=== PATIENT | male | born 1975 | race Caucasian/White ===

== ENCOUNTER 2023-10-20 16:25 | Outpatient (CLI) | payer OTHER, SELFPAY ==
--- NOTE | ~2023-10-20 | US_ITS ---
EXAMINATION: US scrotum doppler DATE: 10/20/2023 17:34 INDICATION: N50.812 - Left testicular pain . TECHNIQUE: Grayscale and Doppler ultrasound images of the testes were obtained. COMPARISON: 05/29/2013. FINDINGS: The right testis measures 5.1 x 2.3 x 3.2 cm. The left testis measures 4.3 x 2.5 x 3.4 cm. No testicular mass. There is normal vascular flow to both testes. The right epididymis is mildly enla rged with normal vascular flow. The left epididymis is mildly enlarged with normal vascular flow. 8 m m left epididymal head cyst. No varicocele. Small left hydrocele with debris. IMPRESSION: Bilateral epididymal enlargement, greater on the left, may represent tubular ectasia status post vase ctomy. Epididymitis is considered less likely due to the lack of hypervascularity but should still be considered in the differential. Small left hydrocele with debris. Reviewed, dictated and finalized at location K. CARE PROVIDER IMPRESSION: Bilateral epididymal enlargement, greater on the left, may represent tubular ec demian status post vasectomy. Epididymitis is considered less likely due to the lack of hypervascularity but should still be considered in the differential. Small left hydrocele with debris.
[2023-10-20 17:28] LABS: Bacteria Urine None Seen /hpf; Non Pathogenic Casts 0-2; RBC Urine 0-2 /hpf (0-2); Squamous Epithelial Cell Urine None seen /hpf (Few); WBC Urine 0-5 /hpf
[2023-10-20 17:37] LABS: Appearance Urine Clear (Clear); Bilirubin Urine Negative (Negative); Blood Urine Negative (Negative); Color Urine Yellow (Yellow); Glucose Urine UA Negative (Negative); Ketones Urine Negative (Negative); Leukocyte Esterase Ur Negative LEU/UL (Negative); Nitrate Urine Negative (Negative); Protein Urine Negative (Negative); Specific Grav Ur 1.014 (1.001-1.035); Urobilinogen Urine 0.2 mg/dL (<2.0)
[2023-10-20 17:39] LABS: Add Urine Microscopic? YES
== END 2023-10-20 16:26 | disposition home or self-care (01) ==
PROVIDERS: PCP Family Medicine; Visit Provider Physician Assistant Medical
DX: N43.3 Hydrocele, unspecified (principal); Z98.52 Vasectomy status
CPT/HCPCS: 76870; 81001; 93976

== ENCOUNTER 2024-02-25 15:14 | Outpatient (CLI) | payer OTHER, SELFPAY ==
--- NOTE | ~2024-02-25 | CT_ITS ---
EXAMINATION: CT abdomen pelvis wo con DATE: 02/25/2024 15:36 INDICATION: Left lower quadrant abdominal pain TECHNIQUE: Computed tomography (CT) of the abdomen and pelvis was performed without intravenous contr ast. Automated exposure control and iterative reconstruction technique were employed. Exam dose: 122 1.68 mGy-cm total exam DLP. COMPARISON: 03/25/2017 CT abdomen pelvis images are not available from the archive at this time. FINDINGS: Elevated diaphragm and mild associated right basilar atelectasis; the 03/20 CT abdome n pelvis reported chronic elevation and discoid atelectasis or scarring in the right lower lobe. The lower lung zones are otherwise clear. Normal heart size. No pericardial or pleural effusion. Status post cholecystectomy. No hepatic, splenic, pancreatic, and adrenal or renal space-occupying ma ss lesion is evident on this limited noncontrast examination. No bile duct or pancreatic duct dilatation. No urinary tract calculus or hydroureteronephrosis. There is mild prostate enlargement. Multiple prostate calcifications. The urinary bladder is unremark able. Bilateral small fat-containing inguinal hernias and small fat-containing umbilical hernia. Normal caliber of the abdominal aorta. No intraperitoneal or retroperitoneal or pelvic mass lesion or adenopathy or ascites is detected. Normal appendix. No bowel obstruction, bowel wall thickening, pneumatosis or intraperitoneal free air is detected. Degenerative changes of the thoracic and lumbar spine. No suspicious osteolytic or osteoblastic lesio ns. IMPRESSION: No diverticulosis, diverticulitis or appendicitis No urinary tract calculus or hydroureteronephrosis Bilateral small fat-containing inguinal hernias and small fat-containing umbilical hernia Status post cholecystectomy Chronic elevation of right diaphragm and associated mild atelectasis at right lung base Reviewed, dictated and finalized at Location A. Reviewed, dictated and finalized at location A. IMPRESSION: No diverticulosis, diverticulitis or appendicitis No urinary tract calculus or hydroureteronephrosis Bilateral small fat-containing inguinal hernias and small fat-containing umbili elis hernia Status post cholecystectomy Chronic elevation of right diaphragm and associated mild atelectasis at right l shashi base
== END 2024-02-25 15:15 ==
LOC: MICIMG 15:15
PROVIDERS: PCP Family Medicine; Visit Provider Physician Assistant
DX: R10.32 Left lower quadrant pain (principal); K57.90 Diverticulosis of intestine, part unspecified, without perforation or abscess without bleeding; Z90.49 Acquired absence of other specified parts of digestive tract; K40.20 Bilateral inguinal hernia, without obstruction or gangrene, not specified as recurrent
CPT/HCPCS: 74176

== ENCOUNTER 2024-09-08 01:01 | Day surgery (SDC) | payer OTHER, SELFPAY ==
--- NOTE | 2024-06-13 10:59 | SUR.PREOP ---
Patient called regarding his appointment. Unable to leave message on pt's voicemail.
--- NOTE | 2024-06-15 09:30 | SUR.PREOP ---
Pt called regarding his appointment. Message left requesting a call back.
[2024-08-23 14:03] VITALS: BMI 31.9
[2024-09-08 09:08] VITALS: BP 146/87; PULSE 102; RESP 20; TEMP 36.2; O2SAT 100; BMI 31.7
[2024-09-08] MEDS: LACTATED RINGERS 1,000 ML 150 ML IV CONT (09:23)
--- NOTE | 2024-09-08 09:26 | WPDANESEPPF ---
Anes - Initial Pre Proc Eval Procedure: Operation Date: 09/08/24 10:30 Proposed Procedures p Colonoscopy - Enrique Hardin MD Date/Time: 09/08/24 09:26 Surgeon: Enrique Hardin MD Pre Op Diagnosis: LLQ pain Patient Data Age: 49 Gender: M Height: 1.78 m Weight: 100.4 kg Last Vital Signs Temp 97.2 F L 09/08/24 09:08 Pulse 102 H 09/08/24 09:08 Resp 20 09/08/24 09:08 BP 146/87 H 09/08/24 09:08 Pulse Ox 100 09/08/24 09:08 O2 Del Method Room Air 09/08/24 09:08 Allergies Allergy/AdvReac Type Severity Reaction Status Date / Time No Known Allergies Allergy Unknown Verified 09/08/24 09:07 Home Medications Medication Instructions Recorded Confirmed Type valacyclovir 500 mg tablet 500 mg PO DAILY #90 tabs 09/04/24 09/08/24 Rx Patient hx anesthesia problems: none Family hx anesthesia problems: none Results Review: All pre-operative results and documents have been reviewed as part of the pre-operative evaluation. [facility] Past Medical History Medical History Allergic rhinitis SUSAN (generalized anxiety disorder) Family History Family History Mother Diabetes mellitus Social History Social History Smoking status: Never smoker Second hand tobacco smoke exposure: No Alcohol intake: never Substance use: never Substance use type: does not use Living arrangements: with family Occupation/Education: occupation Gender identity (if verbalized by the patient): Male Spiritual care concerns: No Anes - Eval Final PreProcedure Day of Procedure 09/08/24 09:26 Patient weight: obese Heart: regular rate and rhythm Lungs: clear to auscultation Airway: Mallampati scale class II Neurological: alert and oriented Last oral intake: >/= 8 hours ASA classification: II Emergent: no Anesthetic plan: proceed Anesthesia type and monitoring: general GIVS and standard monitoring Results Review: All pre-operative results and documents have been reviewed as part of the pre-operative evaluation. Overall good health, walks 2 miles/day, no cp or sob. Informed Consent: The patient's anesthetic plan and its attendant risks and benefits were discussed with the patient/family/POA. Questions were solicited and answers provided to the satisfaction of the patient/family/POA.
--- NOTE | 2024-09-08 09:27 | PM.HPGS ---
History of Present Illness History of Present Illness Consent: Risks, benefits, and alternatives have been discussed and questions answered. Patient agrees to proceed with procedure. Chief complaint: LLQ pain Narrative: Keegan Perry is a 49 year old male here for colonoscopy, last one 10 years ago, also llq pain, ct scan showed small inguinal and umbilical hernias. Review of Systems Review of Systems: All systems reviewed & are unremarkable except as noted in HPI and below PMFSH Past Medical History Medical History (Updated 09/08/24 @ 09:30 by Enrique Hardin MD) Allergic rhinitis Colon cancer screening SUSAN (generalized anxiety disorder) LLQ pain Umbilical hernia Family History Family History Mother Diabetes mellitus Social History Social History Smoking status: Never smoker Second hand tobacco smoke exposure: No Alcohol intake: never Substance use: never Substance use type: does not use Living arrangements: with family Occupation/Education: occupation Gender identity (if verbalized by the patient): Male Spiritual care concerns: No Meds Home Medications and Allergies Home Medications Medication Instructions Recorded Confirmed Type valacyclovir 500 mg tablet 500 mg PO DAILY #90 tabs 09/04/24 09/08/24 Rx Allergies Allergy/AdvReac Type Severity Reaction Status Date / Time No Known Allergies Allergy Unknown Verified 09/08/24 09:07 Vital Signs Vital Signs - 24 hr 09/08/24 09:08 Temperature 97.2 F L Pulse Rate 102 H Respiratory Rate 20 Blood Pressure 146/87 H Pulse Oximetry 100 Oxygen Delivery Room Air Exam Const: General: comfortable and no acute distress HENMT: Face/Nose/Sinus: Normal nares present Eyes: General: appearance normal, both eyes and all related structures Neck: Neck: no JVD Resp: Auscultation: clear to auscultation bilaterally Cardio: Rate: regular rate Rhythm: regular rhythm GI: Inspection: non-distended GI Palp: Yes Soft to palpation Other: small reducible umbilical hernia Skin: General skin exam: normal color Neuro: General: gait normal Speech: normal speech Extrem: General: normal to inspection Psych: Mental Status: mental status grossly normal Assessment and Plan Assessment and plan (1) Colon cancer screening: Code(s): Z12.11 - Encounter for screening for malignant neoplasm of colon Status: Acute Assessment and Plan: colonoscopy (2) LLQ pain: Code(s): R10.32 - Left lower quadrant pain Status: Acute (3) Umbilical hernia: Code(s): K42.9 - Umbilical hernia without obstruction or gangrene Status: Acute Assessment and Plan: if more symptomatic consider referral to surgery
[2024-09-08 09:40] VITALS: BP 134/88; PULSE 83; RESP 13; O2SAT 97
[2024-09-08 09:50] VITALS: BP 116/78; PULSE 75; RESP 15; O2SAT 98
[2024-09-08 10:00] VITALS: BP 119/92; PULSE 84; RESP 16; O2SAT 99
== END 2024-09-08 10:10 | disposition home or self-care (01) ==
PROVIDERS: PCP Family Medicine; Referring Provider Family Medicine; Visit Provider Internal Medicine Gastroenterology
PROC: 0DJD8ZZ Inspection of Lower Intestinal Tract, Via Natural or Artificial Opening Endoscopic (ICD-10-PCS; CPT 45378; principal; 2024-09-08 10:30)
DX: Z12.11 Encounter for screening for malignant neoplasm of colon (principal); K64.8 Other hemorrhoids; F41.9 Anxiety disorder, unspecified; E66.9 Obesity, unspecified; Z68.31 Body mass index [BMI] 31.0-31.9, adult
CPT/HCPCS: 45378; J2704; J7120

== ENCOUNTER 2025-08-06 15:47 | Outpatient (CLI) | payer OTHER, SELFPAY ==
--- NOTE | ~2025-08-06 | CT_ITS ---
EXAMINATION: CT abdomen pelvis wo con, 08/06/2025 15:50 CDT HISTORY: Pelvic pain in male COMPARISON: Comparison 02/25/2024. TECHNIQUE: CT scan of the abdomen and pelvis was performed without IV contrast. One or more of the following dose reduction techniques were used: automated exposure control, adjustment of the mA and/or kV according to patient size, use of iterative reconstruction technique. Unless otherwise stated, incidental findings do not require dedicated follow up imaging FINDINGS: CT abdomen: LUNG BASES: The lung bases are clear. The visualized portions of the heart and pericardium are unremarkable. LIVER: Unremarkable, liver contours intact, no lesions. SPLEEN: Unremarkable, no splenomegaly. KIDNEYS: Right Kidney: Within the right kidney inferior pole collecting system there is a complex appearing focus measuring 2 x 2.5 cm incompletely evaluated. Left Kidney: Unremarkable. No calculi. No hydronephrosis ADRENAL GLANDS: Unremarkable. PANCREAS: Unremarkable. GALLBLADDER/BILIARY: Post cholecystectomy. STOMACH AND ESOPHAGUS: Visualized stomach and esophagus within normal limits. BOWEL/MESENTERY: Moderate fecal content, no colitis or diverticulitis. Appendix normal. Mesentery normal. Small bowel normal. ADENOPATHY/RETROPERITONEUM: No lymphadenopathy. AORTA/VASCULATURE: Normal caliber aorta. FREE FLUID OR FREE AIR: None. CT pelvis: SOLID ORGANS/REPRODUCTIVE: Prostate enlarged, correlate with PSA. BLADDER: Within normal limits. OSSEOUS STRUCTURES: No acute osseous abnormality.No suspicious lesions. OVERLYING SOFT TISSUES: Small fat-containing umbilical hernia. Small bilateral fat-containing inguinal hernia. IMPRESSION: 1. Complex appearing right renal lesion incompletely assessed. Contrast-enhanced CT or MRI is suggested to further evaluate. 2. No etiology to explain the patient's pain Reviewed, dictated and finalized at location A. IMPRESSION: 1. Complex appearing right renal lesion incompletely assessed. Contrast-enhance d CT or MRI is suggested to further evaluate. 2. No etiology to explain the patient's pain
== END 2025-08-06 15:48 | disposition home or self-care (01) ==
LOC: MICIMG 15:48
PROVIDERS: PCP Family Medicine; Visit Provider Urology
DX: R10.2 Pelvic and perineal pain (principal); N28.89 Other specified disorders of kidney and ureter
CPT/HCPCS: 74176

== ENCOUNTER 2025-08-25 12:13 | Outpatient (CLI) | payer OTHER, SELFPAY ==
--- OUTSIDE RECORDS SUMMARY | 2025-06-11 09:00 | XMS_ITS ---
Author Organization [facility] Address [address] [place] [address] Care Team Providers Care Cobbler Apprentice Name Role Phone Erik Baig Unavailable [phone] Yandy LYON, Nash Unavailable Unavailable REASON FOR VISIT Left L3, L4, L5 RF @[facility] w/sed Medications Medication SIG (Take, Route, Frequency, Duration) Notes Start Date End Date Status Triamcinolone Acetonide 0.1 % 1 applicat ion Externally Two times a Week Active Probiotic - as directed Orally Active Multivitamin Adult - 1 tablet Orally Onc e a day; Duration: 30 day(s) Active methylPREDNISolone 4 MG 1 tablet with fo od or milk Orally every 12 hrs; Duration: 30 day(s) Active Encounters Encounter Location Date Provider Diagnosis -[address] [address] 06/11/2025 Erik Baig Plan Of Treatment No Information Progress Notes * Keegan PERRYDOB:[birth year] (50 yo M)Acc No.[id number]:06/11/2025 Progress Note Patient: Erasmo HOLMEDWARDO Keegan Provider: Ira Baig MD :1975 A ge:50 Y S ex:Male Date:06/11/2025 Address:[address] Subjective: * Chief Complaints: * 1 . Left L3, L4, L5 RF @[facility] w/sed. * ROS: C ancer: Breast N o, No. P rostate N o, No. S kin N o, No. O thers N o, No. A utoimmune: Fibromylagia N o, No. L upus N o, No. T MJ N o, No. O steoarthritis N o, No. R heumatoid arthritis N o, No. O thers N o, No. R enal: Kidney stones N o, No. K idney infections N o, No.?Others N o, No. G enitourinary: Prostrate problems N o, No. U rinary Incontinence N o, No. B ladder infections N o, No. O thers N o, No. C entral nervous system: Stroke N o, No. H eadaches N o, No. M igraines?No, No. N erve Damage N o, No. O thers N o, No. I nfectious disease: Hepatitis N o, No. M ononucleosis N o, No. O thers N o, No. P sychiatric: Depression N o, No. E CT Treatments N o, No. A nxiety N o, No. A lcoholism N o, No. P anic Attacks N o, No. D rug Addiction?No, No. O ther N o, No. C ardiology: High blood Pressure N o, No. H eart Attack N o, No.?Angina(Chest Pain) N o, No. C ongestive heart failure N o, No. O thers N o, No. E ndocrinology: Diabetes N o, No. T hyroid disease N o, No. O thers N o, No. G astroenterology: Peptic ulcer disease N o, No. I rritable bowel syndrome N o, No. G ERD N o, No. D iverticulosis N o, No. O thers N o, No. H ematology/Lymph: Anemia N o, No. S ickle Cell N o, No. O thers?No, No. R espiratory: Asthma N o, No. C hronic Bronchitis N o, No. P neumonia N o, No. C OPD N o, No. O thers N o, No. * Medical History: M edical History Verified. * Family History: N on-Contributory. * Medications: T aking Triamcinolone Acetonide 0.1 % Cream 1 application Externally Two times a Week , Taking Probiotic - Tablet Delayed Release as directed Orally , Taking Multivitamin Adult - Tablet 1 tablet Orally Once a day , Taking methylPREDNISolone 4 MG Tablet 1 tablet with food or milk Orally every 12 hrs , Medication List reviewed and reconciled with the patient Objective: * Vitals: Assessment: Plan: * Treatment: * Images: Billing Information: * Visit Code: * Procedure Codes: * Electronic signature of Erik Baig MD on 08/25/2025 at 12:16 PM CDT Sign off status: Pending * Provider: Ira Baig MD Date: 0 06/11/2025 Generated for Alex march/Beulah/Aaliyah on: 12:16 PM CDT
--- NOTE | ~2025-08-25 | MR_ITS ---
EXAMINATION: MR abdomen wo/w con DATE: 08/25/2025 13:51 INDICATION: Right kidney mass. TECHNIQUE: Magnetic resonance imaging (MRI) of the abdomen was performed without and with 15 mL MultiHance intravenous contrast. COMPARISON: CT abdomen and pelvis 08/06/2025 FINDINGS: The liver and spleen are normal. The gallbladder is absent. The pancreas and adrenal glands are normal. There is a 2.8 cm hemorrhagic cyst in right kidney. There is a 9 mm cyst in left kidney. There is an umbilical hernia containing fat. There are no dilated loops of bowel. There are no pathologically enlarged lymph nodes. There is no free intraperitoneal fluid. IMPRESSION: 1. Benign hemorrhagic cyst in right kidney correlating with the CT abnormality. 2. Umbilical hernia containing fat. Reviewed, dictated and finalized at location E.
--- OUTSIDE RECORDS SUMMARY | 2025-08-25 12:16 | XMS_ITS | Patient Health Record ---
Author Organization [facility] Address 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) (51559193) Spondylosis without myelopathy or radiculopathy, lumbosacral region (M47.817) Active confirmed Vital Signs Heart Rate 85 /min 05/02/2025 Temperature 98.2 degrees Fahrenheit 05/02/2025 Oximetry 98 05/02/2025 Blood pressure diastolic 92 mm Hg 05/02/2025 Height 70 in 05/02/2025 Blood pressure systolic 140 mm Hg 05/02/2025 Weight 224 lbs 05/02/2025 BMI 32.14 05/02/2025 Procedures Procedure Date Ordered Date Performed Result Body Sit e *ASC LUMBAR RFA, LEFT 73980 1st level, 51737 2nd level 05/02/2025 N/A Encounters Encounter Location Date Provider Diagnosis -[facility] [address] [place] [address] 05/02/2025 Erik Baig Spondylosis without myelopathy or radiculopathy, lumbosacral region M47.817 -[facility]/ [facility] [address] [place] [address] 02/08/2025 Erik Baig -[facility] [address] [place] [address] [address] [place] [address] 05/08/2025 Erik Baig Assessments Encounter Date Diagnosis (ICD Code) Assessment Notes Treatment Notes Treatment Clinical Notes Section Notes 05/02/2025 Spondylosis without myelopathy or radiculopathy, lumbosacral region (ICD-10 - M47.817) The patient may benefit from repeat left-sided L3, L4 and L5 medial branch radiofrequency denervation. If the patient receives significant improvement on the left but still has some pain on the right consideration of treatment of the right side with medial branch nerve blocks as he has not proceeded with that in the past. Otherwise, if he fails to respond to the radiofrequency we will plan on repeat MRI scan. I did discuss with him the options of diagnostic blocks first or repeating the MRI but he wanted to proceed with the radiofrequency as he is not really reporting any change in his symptoms and denies any radicular pain.I discussed with him the risks of the procedure including bleeding, infection, neurologic injury, cutaneous numbness, persistent paresthesias and the possibility of limited improvement. He understood that. Plan Of Treatment Pending Test Test Name Order Date *ASC LUMBAR RFA, LEFT 34574 1st level, 6 4636 2nd level 05/02/2025 Insurance Providers Payer Name Payer Address Payer Phone Subscriber Number Group Number Insured Name Patient Relationship to Insured Coverage Start Date Coverage End Date [facility] [address] [place] [id number] Keegan Perry Self - patient is the insured Medical (General) History Surgical History Surgery Date(Month/Year)
--- OUTSIDE RECORDS SUMMARY | 2025-08-25 12:16 | XMS_ITS | Clinical Summary ---
Author Organization [facility] Address [address] [place] [address] Care Team Providers Care Spinner Box Name Role Phone Patric Livingston MD Primary Care Provider [phone] Source Comments [facility],non-owned Affiliates and Associated Physician Practices is amultiple site organization consisting of ambulatory clinics and hospital sitesin [place], [place], [place] and [place]. This disclosure is being madepursuant to the Care Everywhere program and may not contain all information available regarding this patient. Last updated 18.[facility] Allergies No known active allergies Medications * Be aware that medications may not be up to date on this document. Alwaysverify current medications with the patient. Probiotic Product (PROBIOTIC ACIDOPHILUS BEADS PO) Active multivitamin daily (THERAGRAN) tablet Take 1 Tab by mouth daily with food Active methylPREDNISolo ne (MEDROL DOSEPAK) 4 MG tabletIndication s:Atopic dermatitis, unspecified type Take by mouth as directed 1 Each 6 Active triamcinolone acetonide (KENALOG) 0.1 % creamIndications :Atopic dermatitis, unspecified type Apply to affected area 2 times daily 30 g 1 6 Active Social History Tobacco Use Types Packs/Day Years Used Date Smoking Tobacco: Never Assessed Sex and Gender Information Value Date Recorded Sex Assigned at Not on file Legal Sex Male 12:52 PM CONTRACTING ANALYST Gender Identity Not on file Sexual Orientation Not on file Last Filed Vital Signs Vital Sign Reading Time Taken Comments Blood Pressure 120/78 10/26/2016 2:11 PM CONTRACTING ANALYST Pulse 74 10/26/2016 2:11 PM CONTRACTING ANALYST Temperature 36.8 C (98.2 F) 10/26/2016 2:11 PM CONTRACTING ANALYST Respiratory Rate 18 10/26/2016 2:11 PM CONTRACTING ANALYST Oxygen Saturation - - Inhaled Oxygen Concentration - - Weight 106.6 kg (235 lb) 10/26/2016 2:11 PM CONTRACTING ANALYST Height 177.8 cm (5' 10) 10/26/2016 2:11 PM CONTRACTING ANALYST Body Mass Index 33.72 10/26/2016 2:11 PM CONTRACTING ANALYST Plan of Treatment Health Maintenance Due Date Last Done Comments COLOGUARD (AGES 45-75) - COL ON CA SCREENING 1975 COLON MONITORING 1975 COLONOSCOPY - COLON CA SCREENING 1975 CT COLONOGRAPHY - COLON CA SCREENING 1975 Colorectal Cancer Screening 1975 FIT - COLON CA SCREENING 1975 FLEX SIG - COLON CA SCREENING 1975 LIPID TESTING 1975 HIV SCREENING 1990 HEPATITIS C SCREENING 02/23/1993 DTAP/TDAP/TD VACCINES (1 - Tdap) 1994 HEPATITIS B VACCINE (1 of 3 - 19+ 3-dose series) 1994 DEPRESSION SCREENING 11/15/2024 PNEUMOCOCCAL VACCINE 50+ (1 of 1 - PCV) 2025 ZOSTER VACCINE (1 of 2) 2025 COVID-19 VACCINE (1 - 2023-2 5 season) 2025 INFLUENZA VACCINE (#1) 2025 HIB VACCINE Aged Out No longer eligi ble based on patient's age to complete this topic HPV VACCINE Aged Out No longer eligi ble based on patient's age to complete this topic MENINGOCOCCAL (Group B) VACC INE SHARED DECISION-MAKING Aged Out No longer eligibl e based on patient's age to complete this topic MENINGOCOCCAL GROUPS A/C/Y/W VACCINE Aged Out No longer eligible b ased on patient's age to complete this topic Insurance [facility] Care Teams Spinner Box Relationship Specialty Start Date End Date Patric Livingston MD [address] [place] [address] PCP - General Family Medicine 10/26/16
== END 2025-08-25 12:14 | disposition home or self-care (01) ==
LOC: CHSIMG 12:14
PROVIDERS: PCP Family Medicine; Visit Provider Nurse Practitioner Family
DX: N28.89 Other specified disorders of kidney and ureter (principal); N28.1 Cyst of kidney, acquired; K42.9 Umbilical hernia without obstruction or gangrene
CPT/HCPCS: 74183; A9577